=== PATIENT | female | born 1995 | race Caucasian/White ===

== ENCOUNTER 2024-08-31 08:00 | Day surgery (SDC) | payer OTHER ==
[2024-08-31] MEDS ORDERED: NALTREXONE50 MG PO (12:58)
[2024-08-31] MEDS ORDERED: KLONOPIN2 MG PO (12:59)
[2024-08-31] MEDS ORDERED: CLONIDINE0.1 MG PO (12:59)
== END 2024-09-01 09:35 | disposition still patient (30) | DRG 897 ==
LOC: ANR 08:00
PROVIDERS: ATTEND Anesthesiology
DX: F11.20 Opioid dependence, uncomplicated (principal)
CPT/HCPCS: J0735; J1100; J1200; J1630; J2060; J2354; J2405; J2550; J2704; J3475; J3480; J3490

== ENCOUNTER → 2024-08-31 | Day surgery (SDC) | payer OTHER ==
[~2024-08-31] VITALS: Ht 157.5 cm; Wt 73.5 kg
[2024-08-31] VITALS (237 sets, daily range): BP systolic 95–163; BP diastolic 64–120
[~2024-08-31] MED LIST: ACETAMINOPHEN 1,000 MG/100 ML VIAL IV PRN; ACETAMINOPHEN 325 MG/TAB PO SCH; ACETAMINOPHEN 500 MG TAB PO PRN; ALBUMIN 25% (12.5GM/50 ML) VIAL IV SCH; ALBUMIN 25% 250 ML IV SCH; ALBUTEROL SULFATE 2.5 MG VIAL IN PRN; ASCORBIC ACID 4,000 MG in SODIUM CHLORIDE 0.9% 1,000 ML IV SCH; BUMETANIDE 1 MG/4 ML VIAL IV ONE; BUMETANIDE 1 MG/4 ML VIAL IV SCH; CLONIDINE0.1 MG PO; CYANOCOBALAMIN 500 MCG/TAB ( B12) PO PRN; Cholecalciferol 2,000 UNIT/TAB PO PRN; DiphenhydrAMINE HCL 50 MG/ML SDV IV PRN; ETOMIDATE 20 MG/10 ML SDV IV ONE; FAMOTIDINE 20 MG/TAB PO PRN; HALOPERIDOL LACTATE 5 MG/ML SDV IV PRN; IPRATROPIUM-Albuterol 0.5MG-2.5MG/3 ML IN PRN; KETOROLAC TROMETHAMINE 30 MG/ML SDV IV PRN; KLONOPIN2 MG PO; LACTATED RINGER'S 1,000 ML IV PRN; LACTATED RINGER'S 500 ML IV ONE; LIDOCAINE HCL 1% (10MG/ML) 100 MG/10 ML MDV IV PRN; LIDOCAINE HCL 1% (10MG/ML) 100 MG/10 ML MDV VT PRN; LORazepam 2 MG/ML IV PRN; MAGNESIUM OXIDE 400 MG/TAB PO PRN; MAGNESIUM SULFATE HEPTAHYDRATE 1 GM in SODIUM CHLORIDE 0.9% 50 ML IV SCH; MAGNESIUM SULFATE HEPTAHYDRATE 100 ML IV PRN; MAGNESIUM SULFATE HEPTAHYDRATE 100 ML IV SCH; METOPROLOL SUCCINATE 25 MG/TAB-TOPROL XL PO SCH; METOPROLOL TARTRATE 25 MG/TAB PO SCH; METOPROLOL TARTRATE 5 MG/5 ML VIAL IV PRN; METOPROLOL TARTRATE 5 MG/5 ML VIAL IV SCH; MIDAZOLAM HCL 2 MG/2 ML VIAL IV PRN; NALTREXONE HCL 50 MG/TAB PO ONE; NALTREXONE HCL 50 MG/TAB PO SCH; NALTREXONE HCL 50 MG/TAB VT PRN; NALTREXONE50 MG PO; NOREPINEPHRINE BITARTRATE 4 MG in SODIUM CHLORIDE 0.9% 250 ML IV SCH; NYSTATIN (Mouth-Throat) 500 MU/UDC UDC PO SCH; OCTREOTIDE ACETATE 100 MCG/VIAL SDV SC PRN; ONDANSETRON HCl 4 MG/2 ML SDV IV PRN; PANTOPRAZOLE SODIUM Sesquihydr 40 MG/TAB PO PRN; PANTOPRAZOLE SODIUM Sesquihydr 40 MG/TAB PO SCH; PATIENT' OWN MED CONTROLLED 1 EA DOSE IV PRN; PHENYLEPHRINE HCL 10 MG in DEXTROSE 5% 250 ML IV SCH; PIPERACILLIN Sodium-Tazobactam 4.5 GM in SODIUM CHLORIDE 0.9% 100 ML IV SCH; POTASSIUM CHLORIDE 20 MEQ/100 ML BAG IV PRN; POTASSIUM CHLORIDE 20 MEQ/15 ML UDC VT SCH; POTASSIUM CHLORIDE 20 MEQ/PKT POWDER PO SCH; POTASSIUM CHLORIDE 20 MEQ/PKT POWDER VT SCH; POTASSIUM CHLORIDE 20 MEQ/TAB PO SCH; POTASSIUM CHLORIDE 20MEQ 100 ML IV SCH; PROMETHAZINE HCL 12.5 MG in SODIUM CHLORIDE 0.9% 50 ML IV PRN; PROMETHAZINE HCL 25 MG in SODIUM CHLORIDE 0.9% 50 ML IV PRN; PROPOFOL 10 MG/ML 100ML VIAL IV PRN; PROPOFOL 100 ML IV ONE; PROPOFOL 100 ML IV PRN; PROPOFOL 100 ML IV SCH; Pantoprazole Sodium 40 MG VIAL (Protonix) IV ONE; Pantoprazole Sodium 40 MG VIAL (Protonix) IV SCH; ROCURONIUM BROMIDE 10 MG/ML 5ML VIAL IV ONE; ROCURONIUM BROMIDE 10 MG/ML 5ML VIAL IV PRN; SCOPOLAMINE 1.5 MG DIS TD PRN; SODIUM CHLORIDE 0.9% IV PRN; STERILE WATER FOR IRRIGATION 1,000 ML BTL IR PRN; SUCCINYLCHOLINE CHLORIDE 20 MG/ML 10ML VIAL IV ONE; SUCCINYLCHOLINE CHLORIDE 20 MG/ML 10ML VIAL IV PRN; SUCRALFATE 1 GM/10 ML SUS PO ONE; THIAMINE HCL 100 MG/ML 2ML VIAL IV PRN; VECURONIUM BROMIDE IV PRN; VERAPAMIL HCL 10 MG/4 ML VIAL IV ONE; VERAPAMIL HCL 10 MG/4 ML VIAL IV SCH; cloNIDine HCL 0.1 MG/TAB PO ONE; cloNIDine HCL 0.1 MG/TAB PO PRN; cloNIDine HCL 0.1 MG/TAB PO SCH; cloNIDine HCL 0.1 MG/TAB VT PRN; cloNIDine HYDROCHLORIDE 100 MCG/ML 10 ML INJ IV ONE; cloNIDine HYDROCHLORIDE 100 MCG/ML 10 ML INJ IV PRN; clonazePAM 1 MG/TAB PO PRN; diazePAM 10 MG/2 ML VIAL IV ONE; diazePAM 10 MG/2 ML VIAL IV SCH; diazePAM 5 MG/TAB PO PRN; diazePAM 5 MG/TAB VT PRN; dilTIAZem HCL 30 MG/TAB PO SCH; dilTIAZem HCL 50 MG/10 ML SDV IV SCH; methylPREDNISolone Sod Succ 40 MG/ML SDV IV SCH
--- NOTE | 2024-08-31 08:00 | NUR ---
Arrival & Pre-treatment Patient arrived to the [facility] suite, identification and demographics confirmed. Patient to room 7, AAO, ambulatory, vitals obtained, ID/allergy/fall bands placed, changed into hospital gown, STEPHIE hose, and non-slip socks. Procedure and timeline explained for treatment and discharge. All questions answered and the patient presents no concerns at this time. V/S assessed, call light is near. Dr. Wiggins telephoned with patient intake information including usage, dose, last dose/time taken and initial vital signs. Patient history and allergies reviewed with MD. Orders received for 10mg PO Valium and 0.2mg PO Clonidine now. Will reassess per protocol and update MD with assessment and vitals.
--- NOTE | 2024-08-31 08:30 | NUR ---
Patient medicated per MD orders. In addition to Clonidine and Valium, patient received 1000 mcg B12 PO, 20 mg Pepcid PO, and Scopolamine TD patch. Medication indication and education provided prior to adminstration.
--- NOTE | 2024-08-31 09:00 | NUR ---
ASSESSED PATIENTS BELONGINGS; NO CONTRABAND FOUND. CELL PHONE, X2 VAPES AND NECKLACE, TONGUE RING PLACED IN RIGHT SHOE IN LOCKER BLUE #1.
[2024-08-31 09:49] LABS: BASO% 0.4 % (0-3); EOS% 1.5 % (0-8); HEMATOCRIT 39.9 % (37.0-47.0); HEMOGLOBIN 13.3 g/dl (12.0-16.0); IMMATURE GRANULOCYTES 0.2 % (0.0-5.0); LYMPH% 19.2 % (15-41); MEAN CELL VOLUME 107.3 fL CALC (80.0-100.0); MEAN CORPUSCULAR HGB 35.8 pG CALC (26.0-32.0); MEAN CORPUSCULAR HGB CONC 33.3 g/dL CAL (32.0-36.0); MONO% 4.4 % (2-13); NEUT# 7.89 thou/uL (2.00-7.15); NEUT% 74.3 % (42-76); RED BLOOD COUNT 3.72 mill/uL (4.20-5.60); RED CELL DISTRI WIDTH 13.5 % (11.5-15.5)
[2024-08-31 09:53] LABS: ALBUMIN 4.3 g/dL (3.2-5.0); BILIRUBIN, TOTAL 0.6 mg/dL (0.02-1.3); CREATININE 0.8 mg/dL (0.5-1.0); POTASSIUM 3.6 mmol/l (3.5-5.1); TOTAL PROTEIN 7.2 g/dL (6.3-8.2)
--- NOTE | 2024-08-31 10:00 | NUR ---
Patients vital signs within pre-treatment parameters for 1.5 hour recheck. No indication for additional Valium or Clonidine as patient is resting comfortably and vital signs are within range.
--- NOTE | 2024-08-31 10:35 | NUR ---
Induction Note Time out performed at 1035. Patient placed on monitors, Teodora hugger, bilateral wrist restraints applied for ET tube protection. Versed 5mg given IV push at 1122 Tourniquet applied to RT arm Lidocaine 100mg given at 1123 IV push followed by Rocoronium 10mg at 1124 IV push and held for 90 seconds. Propofol bolus of 120mg given at 1126 IV push. Succinylcholine 80mg given IV push at 1127. Smooth intubation with 7.5 ETT. Positive CO2. Positive Auscultation for air exchange. Patient placed on ventilator for spontaneous ventilation. Placed on Propofol IV drip at 1128. OG inserted. Positive air on auscultation. Positive gastric content. Stomach washed at this time.
--- NOTE | 2024-08-31 11:40 | NUR ---
OG close note Stomach washed at this time. Naltrexone 50 mg with Clonidine 0.2 mg via OG tube. OG will be clamped for 45 minutes.
--- NOTE | 2024-08-31 11:40 | NUR ---
OG close note Stomach washed at this time. Naltrexone 50 mg with Clonidine 0.2 mg via OG tube. OG will be clamped for 45 minutes.
--- NOTE | 2024-08-31 12:25 | NUR ---
OG open note OG open at this time. Gastric content draining into drainage bag. OG to drain for 45 minutes. Propofol will be titrated down based on patient.
--- NOTE | 2024-08-31 13:10 | NUR ---
OG close note Stomach washed at this time. Naltrexone 50 mg with Clonidine 0.2 mg via OG tube. OG will be clamped for 45 minutes.
--- NOTE | 2024-08-31 14:40 | NUR ---
OG close note Stomach washed at this time. Naltrexone 50 mg with Clonidine 0.2 mg via OG tube. OG will be clamped for 45 minutes.
--- NOTE | 2024-08-31 16:20 | NUR ---
Patient's support person (SP) telephoned with update. All questions answered, no concerns presented at this time. SP agreeable to POC.
--- NOTE | 2024-08-31 18:22 | NUR ---
Transfer Note Patient transferred to medical-surgical unit private room. Report given to primary nurse at bedside. Head to toe assessment, treatment, medications, I/O, IV access reviewed with primary nurse. All questions answered. IVF to continue at 100 ml/hr, NC @ 2L, no adventitious breath sounds. Safety precautions in place, bed locked and in lowest position, call light in reach. Handoff of care complete at this time.
--- NOTE | 2024-08-31 18:45 | NUR ---
patient arrive dto ms ffrom anr; bedside report from juan; no s.s of distress; eye covering placed; keyur hugger placed and working; iv site clean and intactrunning with LR@100; on 2l of ; breathing unlabored; call light within reach bed in lowest postion;safety measures in place; bed alarm activated
--- NOTE | 2024-08-31 19:48 | NUR ---
RECEIVED REPORT FROM DAYSHIFT NURSE. PT NOTED LAYING IN BED SEMI FOWLERS, SLEEPING AT THIS TIME. NASAL CANNULA IN PLACE ON 2L O2. LUNG SOUNDS CLEAR AND BREATHING IS EVEN AND UNLABORED. VSS. NO S/S OF DISTRESS. IVF RUNNING PER EMAR. BED ALARM ON AND SAFETY PRECAUTIONS IN PLACE.
--- NOTE | 2024-08-31 23:00 | NUR ---
PT HAD EPISODE OF VOMITTING @2200. CONDENSER TESTER AND STAFF IMMIDIATELY TURNED PT ONTO SIDE AND YANKER SUCTION WAS USED DUE TO PT BEING TOO DROWSY AND DISORIENTED TO COUGH OR SPIT UP EMESIS. REPOSITIONED PT HIGH FOLWERS IN BED. PT HAD GURGLING BREATH SOUNDS AND CRACKLING, O2 SAT WITH 2L O2 NC WAS 88%. RESPIRATORY THERAPY WAS NOTIFIED AND RESPONDED TO ROOM. ORAL AND NASAL SUCTION WAS COMPLETED, PT ONLY REACTIVE TO PAINFUL STIMULI. UNABLE TO AROUSE STILL. VENTRI MASK WAS PLACED ON 15L O2 AT 50%. PT O2 SATURATION CURRENTLY SITTING AT 94% AT THIS TIME. PT SITTING UP HIGH FOLWERS IN BED. BED ALARM ON AND SAFETY PRECAUTIONS IN PLACE.
[2024-09-01] VITALS (64 sets, daily range): BP systolic 101–154; BP diastolic 63–95
--- NOTE | 2024-09-01 00:36 | NUR ---
PT O2 SAT BEGAN DROPPING AND SUSTAINING AT 87% WITH THE VENTRI MASK. RT NOTIFIED AND NON REBREATHER PLACED ON PT AT 15L O2. PT BREATH SOUNDS CLEAR AT THIS TIME. PT IS SLOWLY BECOMING MORE RESPONSIVE. ABLE TO SQUEEZE HANDS AND TRIES TO NOD HEAD YES OR NOW BUT STILL PRESENTS VERY MUCH DROWSY. O2 SAT SITTING AT 95% ON THE NRB 15L. PT SITTING UP HIGH FOWLERS, BED ALARM ON AND SAFETY PRECAUTIONS IN PLACE.
--- NOTE | 2024-09-01 02:10 | NUR ---
PT RESPIRATIONS CONTINUED TO INCREASE AND PT USING ACCESSORY MUSCLES TO BREATH. RR >55 AND O2 SAT SUSTAINING AT 93% ON NRB. PHYSICIAN WAS INFORMED OF PT STATUS, VERBAL ORDER GIVEN FOR BIPAP TO BE INITIATED. RT NOTIFIED AND PT PLACED ON BIPAP @0135. PT BEGAN WAKING UP AND BECOMING VERY ANXIOUS AND AGITATED, PULLING AT BIPAP MASK. MEDICATION PER EMAR WAS ADMINSITERED FOR JOSE. PT TOLERATED WELL. PT SITTING UP HIGH FOWLERS IN BED, BIPAP IN PLACE. RT AND PACKER OPERATOR AUTOMATIC AT BEDSIDE.
--- NOTE | 2024-09-01 03:30 | NUR ---
PT HAS HAD MINIMAL IMPROVEMENT ON BIPAP AT THIS TIME.L ABG COMPLETED AND PHYSICIAN INFORMED OF PT STATUS, VERBAL ORDER GIVEN FOR CHEST XRAY 1V TO BE COMPLETED. RADIOLOGY NOTIFIED. PT RR FLUCTUATING FROM 40-70. HR, BP AND O2 SAT WNL. SOCIAL SERVICE TECHNICIAN AND RT AT BEDSIDE.
[2024-09-01 03:53] LABS: ALBUMIN 3.6 g/dL (3.2-5.0); CREATININE 0.7 mg/dL (0.5-1.0); MAGNESIUM 1.9 mg/dL (1.6-2.3); POTASSIUM 3.9 mmol/l (3.5-5.1); TOTAL PROTEIN 6.3 g/dL (6.3-8.2)
[2024-09-01 03:55] LABS: BILIRUBIN, TOTAL 1.5 mg/dL (0.02-1.3)
[2024-09-01 04:11] LABS: BASO% 0.2 % (0-3); HEMATOCRIT 40.1 % (37.0-47.0); HEMOGLOBIN 13.4 g/dl (12.0-16.0); IMMATURE GRANULOCYTES 0.4 % (0.0-5.0); LYMPH% 6.1 % (15-41); MEAN CELL VOLUME 109.6 fL CALC (80.0-100.0); MEAN CORPUSCULAR HGB 36.6 pG CALC (26.0-32.0); MEAN CORPUSCULAR HGB CONC 33.4 g/dL CAL (32.0-36.0); MONO% 1.7 % (2-13); NEUT# 10.55 thou/uL (2.00-7.15); NEUT% 91.6 % (42-76); RED BLOOD COUNT 3.66 mill/uL (4.20-5.60); RED CELL DISTRI WIDTH 13.1 % (11.5-15.5)
--- NOTE | 2024-09-01 05:09 | NUR ---
DID ATTEMPT TO ADMINSITER NALTREXONE, HOWEVER PT UNABLE TO FOLLOW COMMANDS OR DIRECTION AT THIS TIME. PT SITTING UP HIGH FOWLERS IN BED, BIPAP MASK IN PLACE. RR:49 VT:310 VE:11.1 IPAP:12 EPAP:8 O2:60%
--- NOTE | 2024-09-01 05:13 | NUR ---
PHYSICIAN INFORMED OF PT BIPAP SETTING AND CHEST XRAY RESULTS. NO NEW ORDERS AT THIS TIME.
--- NOTE | 2024-09-01 05:34 | NUR ---
PT HAD EPISODE OF VOMITTING. BIPAP REMOVED AND ORAL SUCTION USED TO HELP CLEAR EMESIS FROM ORAL CAVITY. RT AND NURSING NODULIZER NOTIFIED. NRB ON 15L O2 PLACED ON PT. 02 SAT SUSTAINING @99%. PT IS ABLE TO OPEN EYES TO NAME AND NOD HEAD YES OR NO. PT C/O STILL FEELING NAUSEOUS. MEDICATION ADMINSTERED PER EMAR FOR NAUSEA. RR:42, PT BREATHING HAS SLIGHTLY IMPROVED AT THIS TIME. OTHER VSS. PT SITTING UP HIGH FOLWERS IN BED. IVF RUNNING PER EMAR. BED ALARM ON AND SAFETY PRECAUTIONS IN PLACE. WATER SUPPLY TECHNICIAN SITTING AT DOORWAY.
--- NOTE | 2024-09-01 06:05 | NUR ---
ADRY FROM RADIOLOGIST OFFICE CALLED TO CONFIRM CHEST XRAY FINDINGS WERE REPORTED TO PHYSICIAN FOR SIGNIFICANT FINDINGS. WAS ALREADY MADE AWARE OF IMAGING RESULTS @9910.
--- NOTE | 2024-09-01 07:57 | NUR ---
CALLED PROVIDER REGARDING PATIET STATUS AND RESPIRATIONS, PATIENT REFUSING TO WEAR NOSE REBREATHER, AND RESPIRATIONS ARE 41 BLOOD PRESSURE 113/79 02 IS 92; VERBAL ORDER TO PLACE PATIENT BACK ON CIPAP; RT WAS CALLED AND NOTFIED,
--- NOTE | 2024-09-01 08:15 | NUR ---
PATIENT IS CURRENTLY BREATHING SHALLOW AND MORE FREQUENTLY, PATIENT CURRENTLY IN CIPAP WITH RESPIRATIONS IN 60S-70S, FACIAL WAS PALE, WITH IVSITE RUNNING WITH LR @100, O2 WAS IN THE 90S, CHRISTOPHE CALLED RTAMADOR RN AND HARJINDER POWELL , TO HELP ASSIST AND GET MORE HELP WITH STATUS OF PATIENT; CHRISTOPHE CALLED DR. LEMUS REGARDING PATIENT AND GOT VERBAL ORDER FOR CLONDINE 0.1 MG IV, ADDIONAL NALTREXONE 25MG, AND CLONPAM 1MG; ORDERS WAS FAXED TO PHARMACY, HARJINDER POWELL MEDICATED CLONDINE CHRISTOPHE MEDICATED WITH CLONAPAM AND NALTREXONE WELL MAGNEISUM DUE TO LEVELS UNDER PROGRAM GUIDLINES AND PROVIDER APPROVAL; CHRISTOPHE GRANDE AND AMADOR ENCOUARGED PATIENT TO TAKE A COUPLE OF BREATHS AND TRY TO RELAX WE OBSERVED HER SWEATING AND BREATHING MORE FREQUENTLY, LUIS ANGEL CALLED DR. LEMUS AGAIN FOR STATUS OF PATIENT AND GOT VERBAL ORDER TO PLACE PATIENT IN ICU AND TO GET ON PRESDEX, HARJINDER SAEED AND TRASNPORTED PATIENT TO ICU AND CHRISTOPHE GAVE REPORT TO ICU NURSE HERMANN AND CALLED PROVIDER AGAIN TO UPDATE PROVIDER ON PATIENT STATU S
--- NOTE | 2024-09-01 09:45 | NUR ---
PT ARRIVED TO ICU AT 0933 VIA HOSPITAL BED ON BIPAP. RT AT BEDSIDE. BEDSIDE REPORT RECEIVED FROM ANDRE BRAY. PT IS FROM [facility], PROCEDURE WAS YESTERDAY. PT REPORTEDLY HAS BEEN TACHYPNEIC THROUGHOUT THE NIGHT AND ALL MORNING; RR RANGING FROM 30'S TO 70'S. LUNG SOUNDS VERY COARSE THROUGHOUT. PT IS TO START PRECEDEX GTT. SITTER AT BEDSIDE.
--- NOTE | 2024-09-01 11:45 | NUR ---
PT REMAINS EXTREMELY TACHYPNEIC ON PRECEDEX GTT. ANDRE WARD, NOTIFIED DR. LEMUS TO UPDATE ON PT STATUS.
--- NOTE | 2024-09-01 12:45 | NUR ---
PT INTUBATED AT [address] CHAVEZ. RT ALSO AT BEDSIDE. NG TUBE PLACED, WELL CENTRAL LINE. PER ORDERS FROM DR. LEMUS. PT TOLERATED WELL. SEDATED WITH ROCURONIUM AND ETOMIDATE; PT NOW HAS PROPOFOL INFUSING TO MAINTAIN SEDATION AND RASS -2.
--- NOTE | 2024-09-01 13:15 | NUR ---
PT FAMILY UPDATED BY ANDRE WARD.
[2024-09-01 13:21] LABS: BASO% 0.2 % (0-3); LYMPH% 9.6 % (15-41); MEAN CELL VOLUME 108.6 fL CALC (80.0-100.0); MEAN CORPUSCULAR HGB 36.2 pG CALC (26.0-32.0); MEAN CORPUSCULAR HGB CONC 33.3 g/dL CAL (32.0-36.0); MONO% 2.1 % (2-13); NEUT# 5.02 thou/uL (2.00-7.15); NEUT% 87.9 % (42-76); RED BLOOD COUNT 3.59 mill/uL (4.20-5.60); RED CELL DISTRI WIDTH 13.1 % (11.5-15.5)
[2024-09-01 13:40] LABS: IMMATURE GRANULOCYTES 0.2 % (0.0-5.0)
--- NOTE | 2024-09-01 13:42 | NUR ---
PATIENT HAD A 16 [place] WEINSTEIN CATHETER INSERTED AT 1344 ON 09/01/24 . 1 ATTEMPT
[2024-09-01 13:46] LABS: ALBUMIN 3.2 g/dL (3.2-5.0); BILIRUBIN, TOTAL 1.6 mg/dL (0.02-1.3); CREATININE 0.6 mg/dL (0.5-1.0); POTASSIUM 4.6 mmol/l (3.5-5.1); TOTAL PROTEIN 5.8 g/dL (6.3-8.2)
--- NOTE | 2024-09-01 14:30 | NUR ---
CALLED SPOKE WITH DR. LEMUS RELAYED ABG RESULTS ORDERS RECEIVED.
--- NOTE | 2024-09-01 15:00 | NUR ---
NO CHANGES TO PT STATUS. TOLERATING CURRENT VENT SETTINGS WELL; VENT SETTINGS PREVIOUSLY ADJUSTED BY RT PER DR. LEMUS. GASTRIC CONTENT TESTED POSITIVE FOR BLOOD. DR. Singh AWARE. PT STARTED ON KARAFATE PER HIS ORDERS. VSS AT THIS TIME. RASS -2.
--- NOTE | 2024-09-01 16:20 | NUR ---
SPOKE WITH DR. LEMUS OVER THE PHONE. ORDERS RECEIVED TO HOLD LAST DOSE OF POTASSIUM, WELL TO INCREASE PEEP TO 8, AND SLOWLY TITRATE FIO2 DOWN TOLERATED TO MAINTAIN O2SAT >92%. ORDERS RECEIVED FOR NALTREXONE 50MG DAILY. ORDERS PLACED AND RT NOTIFIED TO MAKE VENT SETTINGS.
--- NOTE | 2024-09-01 17:00 | NUR ---
NO SIGNIFICANT CHANGES TO PT STATUS. O2SAT INCREASED WITH CHANGE MADE TO PEEP; RT AT BEDSIDE TO TITRATE FIO2 DOWN FROM 60 TO 50%. PT SATTING 98%. PT REMAINS TACHYPNEIC, RR 31. RASS -2. ALL OTHER VITAL SIGNS STABLE.
--- NOTE | 2024-09-01 20:49 | NUR ---
AWAKENING TRIAL STARTED AT 2014 AND COMPLETED 2029. PATIENT UNABLE TO FOLLOW COMMANDS BUT RESPONDS TO PAIN. ASSESSMENT COMPLETED. PATIENT INTUBATED WITH A 7.5 ET, 24 AT THE LIP. RIJ TL PATENT WITH PROP AT 50 MCG/KG/MIN (19.2 mL/HR) , LR @ 100 mL/HR AND PRECEDEX AT 1.6 MCG/KG/HR (25.6 mL/HR). LUNGS COARSE TO ASCULTATION. PATIENT VENTILATED WITH VENTILATOR SETTINGS FOLLOWS: VT 450 FIO2 40% RR 20 PEEP 8 BOWEL SOUNDS ACTIVE. NO EDEMA NOTED. OG PATENT TO LOW/INT SUCTION, 50 mL OF DARK RED SECRECTIONS NOTED. WEINSTEIN PATENT AND FLOWING TO GRAVITY WITH 175 mL OF CLEAR, YELLOW URINE NOTED. SR ON THE MONITOR. ORAL CARE PROVIDED AND PATIENT REPOSITIONED TO L SIDE. SAFETY MEASURES IN PLACE INCLUDING B/L WRIST RESTRAINTS ORDERED, BED LOCKED AND IN LOW POSITION. NO APPARENT DISTRESS NOTED. WILL CONTINUE WITH PLAN OF CARE.
--- NOTE | 2024-09-01 22:00 | NUR ---
PATIENT REPOSITIONED TO R SIDE. ORAL CARE PROVIDED. VSS. INITIAL ASSESSMENT UNCHANGED. 325 mL OF URINE NOTED IN WEINSTEIN. NO APPARENT DISTRESS NOTED. WILL CONTINUE WITH PLAN OF CARE.
[2024-09-02] VITALS (91 sets, daily range): BP systolic 105–149; BP diastolic 66–97
--- NOTE | 2024-09-02 | NUR ---
ROUNDING COMPLETE. INITIAL ASSESSMENT UNCHANGED. ORAL CARE PROVIDED. REPOSITIONED SUPINE. 450 mL OF URINE NOTED IN WEINSTEIN. 15 mL NOTED FROM OG. SR ON THE MONITOR. VSS. WILL CONTINUE WITH PLAN OF CARE.
--- NOTE | 2024-09-02 04:10 | NUR ---
ROUNDING COMPLETE. PATIENT PROVIDED ORAL CARE, COMPLETE BED BATH AND LINEN CHANGE. REPOSITIONED TO L SIDE. VITAL SIGNS STABLE: HR 68 O2 SAT 97% BP 122/64 RR 26 675 mL OF URINE NOTED IN WEINSTEIN. NO ADDITIONAL CONCERNS AT THIS TIME. WILL CONTINUE WITH PLAN OF CARE.
--- NOTE | 2024-09-02 04:38 | NUR ---
ABG RESULTS IN (REVIEW LABS), ROBIN RT UPDATED DR. LEMUS VERBAL ORDER RECEIVED TO DECREASE RATE TO 15.
[2024-09-02 05:45] LABS: BASO% 0.2 % (0-3); EOS% 0.1 % (0-8); MEAN CELL VOLUME 107.9 fL CALC (80.0-100.0); MEAN CORPUSCULAR HGB 36.2 pG CALC (26.0-32.0); MEAN CORPUSCULAR HGB CONC 33.5 g/dL CAL (32.0-36.0); MONO% 2.2 % (2-13); NEUT# 9.46 thou/uL (2.00-7.15); RED BLOOD COUNT 3.04 mill/uL (4.20-5.60); RED CELL DISTRI WIDTH 13.4 % (11.5-15.5)
--- NOTE | 2024-09-02 05:56 | NUR ---
PATIENT REPOSITIONED SUPINE. ORAL CARE PROVIDED. VSS. NO ADDITIONAL CONCERNS. WILL CONTINUE WITH PLAN OF CARE.
[2024-09-02 05:57] LABS: ALBUMIN 2.6 g/dL (3.2-5.0); CREATININE 0.8 mg/dL (0.5-1.0); POTASSIUM 3.7 mmol/l (3.5-5.1)
[2024-09-02 06:23] LABS: HEMATOCRIT 32.8 % (37.0-47.0)
[2024-09-02 06:24] LABS: LYMPH% 10.5 % (15-41)
--- NOTE | 2024-09-02 08:00 | NUR ---
PT IS SEDATED AND RESTRAINED. RESTRAINT CARE COMPLETED. PT TURNED TO THE RIGHT. ORAL CARE PROVIDED.
--- NOTE | 2024-09-02 10:04 | NUR ---
PT IS TURNED TO THE LEFT. ORAL CARE AND RESTRAINT CARE PROVIDED. SEE CHART.
--- NOTE | 2024-09-02 11:44 | NUR ---
UNSUCCESSFUL WEANING AND WAKING TRAIL COMPLETED WITH RT HURN AND MYSELF AT BEDSIDE.
--- NOTE | 2024-09-02 12:06 | NUR ---
PT IS INTUBATED AND SEDATED. ORAL AND RESTRAINT CARE PROVDED, SEE CHART. PT TURNED SUPINE.
--- NOTE | 2024-09-02 14:00 | NUR ---
PT IS IN THE SAME CONDITION. DR. LEMUS AT BEDSIDE. ORAL AND RESTRAINT CARE COMPLETED.
--- NOTE | 2024-09-02 15:58 | NUR ---
PT IN THE SAME CONDITION. PT TURNED TO MAR[place]. ORAL AND RESTRAINT CARE PROVIDED, SEE CHART.
--- NOTE | 2024-09-02 18:25 | NUR ---
PT IN THE SAME CONDITION. PT TURNED TO SUPINE. ORAL AND RESTAINT CARE PROVIDED.
--- NOTE | 2024-09-02 19:45 | NUR ---
PATIENT LYING IN BED, REPOSITIONED TO R SIDE. ORAL CARE PROVIDED. ASSESSMENT COMPLETED. PATIENT NOTED TO BE WARM/DIAPHORETIC. TEMP 99.8, WILL MEDICATE ACCORDING TO EMAR. LUNGS CLEAR/DIMINISHED TO ASCULTATION. BREATHING ASSISTED ON VENTILATOR. VENT SETTINGS FOLLOWS: FIO2: 40% PEEP: 8 RR: 15 PINSP: 15 TI: 0.95 (SEE CHART FOR VS). PATIENT PULLING AT RESTRATINTS AND TOSSING HEAD BACK AND FORTH. WILL INCREASE PROPOFOL PER PROTOCOL. RIJ PATENT WITH PROP AT 60 MCG/KG/MIN, PRECEDEX AT 1.6 MCG/KG/MIN (25.6 mL/HR), AND LR AT 150 mL/HR. WEINSTEIN PATENT AND FLOWING TO GRAVITY WITH 40 mL OF CLEAR, YELLOW URINE NOTED. COVID/FLU LABS ORDERED (SEE PROGRESS NOTE). CLARIFICATION RECEIVED FROM DR. LEMUS, PATIENT IS TO HAVE BOLUS TUBE FEED TID. START AT 60 mL WITH 200 mL FLUSH. WILL GIVE PATIENT FIRST FEED AT 2100. FEED IS TO BE INCREASED, "SLOWLY" PER MEAL PATIENT TOLERATES. WILL INCREASE BY 20 mL PER FEED. WILL CLARIFY GOAL WITH DR. LEMUS 09/03. SAFETY MEASURES IN PLACE INCLUDING BED LOCKED AND IN LOW POSITION. NO ADDITIONAL CONCERNS AT THIS TIME. WILL CONTINUE WITH PLAN OF CARE. RT AT BEDSIDE.
--- NOTE | 2024-09-02 20:15 | NUR ---
DR. LEMUS CONTACTED AND MADE AWARE THAT PATIENT IS MAXXED ON PROP AT 75 MCG/KG/MIN AND ON 1.6 MCG/KG/HR OF PRECEDEX ([facility] PROTOCOL > 0.8 MCG/KG/HR) PATIENT CONTINUES TO BE RESTLESS, RR BETWEEN 35 - 40, PROVIDER AWARE OF FEVER AT 99.8 - MEDICATED ACCORDING TO EMAR. VERBAL ORDER GIVEN TO ADMINISTER 2MG ATIVAN NOW, ADDITIONAL 2MG IF NECCESSARY. DO NOT EXCEED 6MG TOTAL.
[2024-09-03] VITALS (73 sets, daily range): BP systolic 103–163; BP diastolic 61–94
--- NOTE | 2024-09-03 | NUR ---
PATIENT REPOSITIONED SUPINE. ORAL CARE PROVIDED. WILL CONTINUE WITH PLAN OF CARE.
--- NOTE | 2024-09-03 02:00 | NUR ---
PATIENT REPOSITIONED TO R SIDE. ORAL CARE PROVIDED. WILL CONTINUE WITH PLAN OF CARE.
[2024-09-03 05:40] LABS: BASO% 0.2 % (0-3); EOS% 0.1 % (0-8); HEMATOCRIT 32.4 % (37.0-47.0); HEMOGLOBIN 10.7 g/dl (12.0-16.0); IMMATURE GRANULOCYTES 0.2 % (0.0-5.0); MEAN CELL VOLUME 110.6 fL CALC (80.0-100.0); MEAN CORPUSCULAR HGB 36.5 pG CALC (26.0-32.0); MONO% 3.2 % (2-13); NEUT# 7.19 thou/uL (2.00-7.15); NEUT% 84.2 % (42-76); RED BLOOD COUNT 2.93 mill/uL (4.20-5.60); RED CELL DISTRI WIDTH 13.2 % (11.5-15.5)
[2024-09-03 05:50] LABS: ALBUMIN 2.4 g/dL (3.2-5.0); BILIRUBIN, TOTAL 0.9 mg/dL (0.02-1.3); CREATININE 0.7 mg/dL (0.5-1.0); POTASSIUM 3.3 mmol/l (3.5-5.1); TOTAL PROTEIN 4.8 g/dL (6.3-8.2)
[2024-09-03 06:00] LABS: LYMPH% 12.1 % (15-41)
--- NOTE | 2024-09-03 06:00 | NUR ---
PATIENT GIVEN COMPLETE BED BATH AND LINEN CHANGE. REPOSITIONED SUPINE AND ORAL CARE PROVIDED. WILL CONTINUE WITH PLAN OF CARE.
--- NOTE | 2024-09-03 08:00 | NUR ---
PT IS SEDATED AND INTUBATED. PT TURNED TO RIGHT. ORAL AND RESTRAINT CARE PROVIDED, SEE CHART.
--- NOTE | 2024-09-03 08:00 | NUR ---
DID NOT DO WEAING TRIAL YET, PER DR. LEMUS'S ORDERS. WILL TRY WEANING TRIAL WITH DR. LEMUS TODAY.
--- NOTE | 2024-09-03 09:54 | NUR ---
PT CONDITION THE SAME. PT TURNED TO THE LEFT. ORAL AND RESTRAINT PROVIDED, SEE CHART.
--- NOTE | 2024-09-03 12:00 | NUR ---
PT TURNED TO THE SUPINE POSITION. ORAL AND RESTRAINT CARE PROVIDED, SEE CHART.
--- NOTE | 2024-09-03 12:36 | NUR ---
ET TUBE PULLED BACK 2CM PER . ET TUBE AT THE 21CM JULIANN AT THE THE LIP.
--- NOTE | 2024-09-03 14:00 | NUR ---
PT TURNED TO THE RIGHT, MOTHER AT BEDSIDE. ORAL CARE AND RESTRAINT CARE PROVIDED, SEE CHART.
--- NOTE | 2024-09-03 16:01 | NUR ---
PT TURNED TO THE LEFT. ORAL AND RESTRAINT CARE PROVIDED, SEE CHART.
--- NOTE | 2024-09-03 17:30 | NUR ---
DR. LEMUS MADE AWARE OF ALL OF THE FOLLOWING. TEMP OF 102 AND PT STATE OF BEING FLUSHED AND DIAPHORETIC. PT WAS GIVEN TYLONOL ORDERED. PT TEMP CAME DOWN TO 98.9, PT IS STILL DIAPHORETIC AND FLUSHED. SEE NEW ORDERS.
--- NOTE | 2024-09-03 18:17 | NUR ---
PT TURNED SUPINE. ORAL AND RESRAINT CARE COMPLETED, SEE CHART.
--- NOTE | 2024-09-03 20:00 | NUR ---
PATIENT REPOSITIONED TO R SIDE. ASSESSMENT COMPLETED (SEE INTERVENTIONS). ORAL CARE PROVIDED. PATIENT NOTED TO HAVE A RASS OF 2. SAFETY MEASURES IN PLACE INCLUDING BED IN LOW POSITION AND LOCKED, RESTRAINTS IN USE. NO ADDITIONAL CONCERNS AT THIS TIME. WILL CONTINUE WITH PLAN OF CARE.
--- NOTE | 2024-09-03 21:13 | NUR ---
CONTACTED DR. SALOMON REGARDING PATIENT'S ELEVATED RR. PROVIDER STATES TO ADMINISTER 10MG DIAZEPAM, DO NOT REINTRODUCE PRECEDEX AT THIS TIME AND USE ATIVAN IF NEEDED LATER. NO ADDITIONAL ORDERS AT THIS TIME.
--- NOTE | 2024-09-03 22:00 | NUR ---
PATIENT NOTED TO HAVE A SMALL, LIQUID, BROWN BOWEL MOVEMENT. PATIENT CLEANED, ORAL CARE PROVIDED AND REPOSITIONED TO L SIDE. RR 45. NO ADDITIONAL CONCERNS, WILL CONTINUE WITH PLAN OF CARE.
[2024-09-04] VITALS (70 sets, daily range): BP systolic 115–168; BP diastolic 64–88
--- NOTE | 2024-09-04 00:21 | NUR ---
PATIENT REPOSITIONED SUPINE. ORAL CARE PROVIDED. SINUS TACH ON THE MONITOR. NO ADDITIONAL CONCERNS. WILL CONTINUE WITH PLAN OF CARE.
--- NOTE | 2024-09-04 02:31 | NUR ---
SPOKE WITH DR. LEMUS REGARDING PATIENT'S HEART RATE, CURRENTLY 129 AND FOAM COMING OUT OF PATIENT'S NOSE. ORDERS GIVEN FOR STAT EKG, ECHO, AND METOPROLOL 2.5MG AND ADDITIONAL 2.5 IF UNRESOLVED AND BP STABLE. ORDERS PLACED. PATIENT CLEANED, REPOSITIONED TO R SIDE. ORAL CARE PROVIDED. PATIENT DEEP SUCTIONED.
--- NOTE | 2024-09-04 03:46 | NUR ---
FOLLOW UP CALL RECEIVED FROM DR. LEMUS, UPDATED ON PATIENT'S STATUS. REQUESTED TO BE CALL WITH ECHO RESULTS SOON IMPRESSION IS IN.
[2024-09-04 04:34] LABS: BASO% 0.1 % (0-3); HEMATOCRIT 35.4 % (37.0-47.0); HEMOGLOBIN 11.5 g/dl (12.0-16.0); MEAN CELL VOLUME 111.7 fL CALC (80.0-100.0); MEAN CORPUSCULAR HGB 36.3 pG CALC (26.0-32.0); MEAN CORPUSCULAR HGB CONC 32.5 g/dL CAL (32.0-36.0); MONO% 7.8 % (2-13); NEUT# 6.26 thou/uL (2.00-7.15); NEUT% 80.3 % (42-76); RED BLOOD COUNT 3.17 mill/uL (4.20-5.60); RED CELL DISTRI WIDTH 13.3 % (11.5-15.5)
[2024-09-04 04:55] LABS: ALBUMIN 2.7 g/dL (3.2-5.0); BILIRUBIN, TOTAL 1.1 mg/dL (0.02-1.3); CREATININE 0.7 mg/dL (0.5-1.0); POTASSIUM 3.5 mmol/l (3.5-5.1); TOTAL PROTEIN 5.2 g/dL (6.3-8.2)
[2024-09-04 05:02] LABS: IMMATURE GRANULOCYTES 0.8 % (0.0-5.0)
--- NOTE | 2024-09-04 06:13 | NUR ---
RT AT BEDSIDE TO ASSESS PATIENT PATIENT RECEIVED BED BATH AND VENT ALARMING FOR HIGH 02. PATIENT REPOSITIONED SUPINE, ORAL CARE PROVIDED. NO ADDITIONAL CONCERNS AT THIS TIME. WILL CONTINUE WITH PLAN OF CARE.
--- NOTE | 2024-09-04 07:30 | NUR ---
REPORT RECEIVED FROM NIGHT NURSE. PT REMAINS ON VENTILATOR, PC-AC. FiO2 60%, Pins INCREASED TO [address] LEMUS AFTER ABG RESULT, RR 15, PEEP 10. PT BREATHING OVER THE VENT, RANGING FROM 38-50'S. HR ELEVATED IN THE 120'S. O2SAT 91%. PHONE CALL RECEIVED FROM [place] FELIPE TO ADVANCE ET TUBE 3CM; RT NOTIFIED AND IS AT BEDSIDE TO DO SO. PT LUNG SOUNDS COARSE THROUGHOUT. BS HYPOACTIVE; ABDOMEN SOFT. OG TUBE TO LIS; GREEN DRAINAGE. PULSES WEAK ALL EXTREMETIES. SKIN W/M/I. WEINSTEIN CATHETER IN PLACE. SEDATED WITH PROPOFOL, RASS -2. RESTRAINTS REMOVED TEMPORARILY FOR NURSING CARE AND REPOSITIONING. PUPILS 4CM.
--- NOTE | 2024-09-04 07:46 | NUR ---
ET TUBE ADVANVED 3CM PER X-RAY.
--- NOTE | 2024-09-04 08:28 | NUR ---
PHONE CALL PLACED TO DR. LEMUS TO NOTIFY OF PT STATUS. ORDERS RECEIVED TO GIVE ADDITIONAL 1MG DOSE OF METOPROLOL AND 1MG BUMEX AFTER CXR RESULTS CONVEYED. RT NOW AT BEDSIDE TO DO ABG, AND AWARE TO CALL DR. Singh WITH RESULTS.
--- NOTE | 2024-09-04 08:55 | NUR ---
SPOKE WITH DR. LEMUS ON THE PHONE TO INFORM THAT WE DO NOT TO INTRA-ABDOMINAL PRESSURE MONITORING. TOLERATING VENT SETTINGS, BUT STILL BREATHING OVER THE VENT, AROUND 38 BREATHS PER MIN. HR REMAIN ELEVATED EVEN AFTER ADDITIONAL DOSE OF METOPROLOL; RATE 115. BP STABLE. RASS -2; SEDATED WITH PROPOFOL.
--- NOTE | 2024-09-04 09:06 | NUR ---
PRESSURE INCREASED TO 21 PER .
--- NOTE | 2024-09-04 10:37 | NUR ---
PHONE CALL PLACED TO DR. LEMUS TO UPDAT CARMINE PT STATUS. INFORMED OF PT VS, INCLUDING HR, RR, AND 02SAT. ORDERS RECEIVED FOR METOPROLOL PRN TO KEEP HR LESS THAN OR EQUAL TO 100.
--- NOTE | 2024-09-04 11:27 | NUR ---
NO CHANGES TO PT STATUS. GIVEN ORDERED PRN METOPROLOL FOR ELEVATED HR. RR REMAINS UNCHANGED. REPOSITIONED AND MOUTH CARE. RASS -2.
--- NOTE | 2024-09-04 13:03 | NUR ---
FILM COLOR TESTER AT BEDSIDE TO COMPLETE ORDERED EXAMS.
--- NOTE | 2024-09-04 14:14 | NUR ---
NO CHANGES TO PT STATUS. RR REMAINS ELEVATED, HR REMAINS ELEVATED. O2SAT 92%. PT RPOSITIONED AND MOUTH CARE PROVIDED.
--- NOTE | 2024-09-04 15:00 | NUR ---
PHONE CALL PLACED TO DR. LEMUS. INFORMED OF LOWER EXTREMETY VENOUS STUDY WELL ECHO PRELIM RESULTS. UPDATED ON MOST RECENT VS. ORDER RECEIVED FOR LABETOLOL 10MG Q15 MIN TO MAINTAIN HR LESS THAN OR EQUAL TO 100. ORDER PLACED AND PHARMACY NOTIFIED.
--- NOTE | 2024-09-04 17:00 | NUR ---
NO CHANGES TO PT STATUS. REPOSITIONED AND ORAL CARE PROVIDED. ROM DONE.
--- NOTE | 2024-09-04 17:33 | NUR ---
PHONE CALL PLACED TO DR. LEMUS. INFORMED THAT CARDIZEM BOLUS HAD NO EFFECT ON PT HR. UPDATED ON CURRENT VS. ORDERS RECEIVED FOR VERAPAMIL.
--- NOTE | 2024-09-04 18:19 | NUR ---
DR. LEMUS AT BEDSIDE TO ASSESS PT. ORDERS RECEIVED FOR ADDITIONAL DOSE OF VERAPAMIL.
--- NOTE | 2024-09-04 18:35 | NUR ---
PHONE CALL PLACED TO [facility] TO REQUEST THEY VERYIFY MEDICATIONS.
--- NOTE | 2024-09-04 19:30 | NUR ---
RECD REPORT FROM DAY SHIFT RN. PT INTUBATED ETT 7.5 23@LIP 60% FIO2 PEEP8 RASS -3 ON PROPOFOL GTT AT 70 MICS. RECEIVING LR @ 60ML/HR, DR LEMUS BEDSIDE TO DISCUSS PLAN OF CARE. VERAPIMIL ORDERED 5MG ON DAY SHIFT, ORDERED 10MG REPEAT DOSE - OVERRIDEN BY NIGHT RN AND ADMINISTERED. ALBUMIN ORDERED AND INFUSED PER MD ORDER. AT THIS TIME, PT IS GENERALLY STABLE ALTHOUGH INTERMITTENT RESPIRATORY CONCERNS, COMMUNICATED WITH MD AND PLAN TO DISCUSS THROUGHOUT SHIFT IF NEEDED. FALL PRECAUTIONS IN PLACE.
[2024-09-04 22:45] LABS: BASO% 0.1 % (0-3); HEMATOCRIT 34.1 % (37.0-47.0); HEMOGLOBIN 11.2 g/dl (12.0-16.0); IMMATURE GRANULOCYTES 0.4 % (0.0-5.0); LYMPH% 11.8 % (15-41); MEAN CELL VOLUME 108.3 fL CALC (80.0-100.0); MEAN CORPUSCULAR HGB 35.6 pG CALC (26.0-32.0); MEAN CORPUSCULAR HGB CONC 32.8 g/dL CAL (32.0-36.0); MONO% 7.5 % (2-13); NEUT# 5.65 thou/uL (2.00-7.15); NEUT% 80.2 % (42-76); RED BLOOD COUNT 3.15 mill/uL (4.20-5.60); RED CELL DISTRI WIDTH 13.4 % (11.5-15.5)
[2024-09-04 22:55] LABS: CREATININE 0.8 mg/dL (0.5-1.0)
[2024-09-04 22:56] LABS: POTASSIUM 2.5 mmol/l (3.5-5.1)
[2024-09-05] VITALS (24 sets, daily range): BP systolic 115–147; BP diastolic 70–87
--- NOTE | 2024-09-05 | NUR ---
AT 2208PM PT REPEAT VERIFIED TEMPERATURE 103.1 ORDERED STAT LACTIC, CBC W/DIFF AND CHEM. INFUSED IV TYLENOL 1,000MG PER MD ORDER. ZOSYN ADMINISTERED ORDERED. REPEATED TEMPERATURES SHOWED 2335 102.4, 2354 101.9. LABS RESULTED WITH POTASSIUM LOW AT 2.5. COLLABORATIVE DISCUSSION WITH RT AGREED TO ADD NEB TX TO REQUEST UPON MD CALL. CONTACTED DR Singh AT 2330 ONCE REMAININT LABS ANDLACTIC RESULTED (1.7). REQUESTED RATE CONTROL MED FOR HR SUSTAINING > 120. REPEAT IV VERAPIMIL ORDERED AND ADMINISTERED. REQUESTED NEB TX, ORDERED AND ENTERED. POTASSIUM AND MAGNESIUM REPLACEMENT ORDERED. DR LEMUS REQUESTED NIMBEX GTT PARALYTIC AGENT. DISCUSSED IF IT WAS FORMULARY IN HOUSE AND WOULD CALL BACK. IN COLLABORATION WITH HOUSE SUP VECURONIUM GTT PROTOCOL WAS FOUND TO BE ICU BASELINE PARALYTIC TREATMENT. VOOLTIMETER AND BIS LOCATED AND VERIFIED OPERATIONAL IN PREPARATION FOR INITIATION OF PARALYTIC AGENT. CONTACTED MD TO VERIFY WHETHER MD DESIRED LOADING DOSE OR TO TITRATE WITHOUT BOLUS LOADING DOSE AND MD STATED THAT HE DID NOT WANT VECURONIUM, HE REQUESTED NIMBEX SPECIFICALLY WHICH WAS NOT IN FORMULARY. COMMUNICATED PT CONDITION AT THAT TIME WHICH WAS REFLEXIVELY STABLE IN COMPARISON TO PRIOR WITH HR 90S, BP 120S/90S, SAT 93 ON VENT AT 60%. MD DECIDED TO HOLD THE PARALYTIC FOR FURTHER REVIEW. MD NOTIFIED OF PT TEMPERATURES, CURRENT TEMP 100.1 WITH NURSING INTERVENTIONS COOLING AGENTS, ICE PACKS CLOTH AND FANS ASSISTING WITH THERMOREGULATION ADJUVANT TO ANTIPYRETIC AGENTS PER MD ORDER. FALL PRECAUTIONS REMAIN IN PLACE.
--- NOTE | 2024-09-05 01:30 | NUR ---
PT CLEANED FROM BM. DEMONSTRATING EXCESSIVE ATTEMPTS AT AIRWAY CLEARANCE, SUCTIONING COMPLETED. CLEANED FROM BM WITH BED BATH AND LINEN CHANGE. RECONNECTED OGT TO LIS AND RELIEVED OF APPROX 400CC OF GREEN/BILE LIKE FLUID. BOLSTERED HEAD AND OFFLOADED PROMINENCES FOR SUPPORT. TEMPERATURE REMAINS STABLE AT THIS TIME HOVERING AROUND 100.0-100.2 PER FREQUENT TEMP CHECKS. FALL PRECAUTIONS REMAIN IN PLACE.
--- NOTE | 2024-09-05 03:45 | NUR ---
DR LEMUS CALLED - DISCUSSED CURRENT CONDITION AND STABILITY OF PATIENT. ORDERED CXR AND ABG FOR 0500AM. PER MD WISHES GAS RESULTS SENT TO HIM MD IS EN ROUTE TO ANOTHER FACILITY AT THIS TIME. RT CONTACTED FOR GAS.
--- NOTE | 2024-09-05 05:50 | NUR ---
SPOKE WITH DR AFTER SENDING GAS RESULTS - REQ TV REDUCED TO 550 AND PEEP INCREASED TO 10. RT NOTIFIED AND BEDSIDE SETTINGS CHANGED. PT REQUIRES INTENSE AND CONSISTENT CARE. REMAINS STABLE AT THIS TIME. FALL PRECAUTIONS IN PLACE.
--- NOTE | 2024-09-05 07:02 | NUR ---
REPORT GIVEN TO DAY SHIFT RN. PT STABLE AT THIS TIME, LAST TEMP 0600 100.0. RESTING CALMLY WITH PRECAUTIONS IN PLACE.
--- NOTE | 2024-09-05 07:31 | NUR ---
REPORT RECEIVED FROM NIGHT NURSE. PT REMAINS ON VENTILATOR. RR ELEVATED, FROM 25-40. O2SAT 92%. SIMV MODE ON VENT, 60%, TV550, RATE 15, PEEP 10, pSUPP 20. LUNGS COARSE THROUGHOUT. HR 120-130'S. BP STABLE. BS HYPOACTIVE. OG TO LIS; GREEN DRAINAGE. PULSES STRONG UPPER, WEAK LOWER EXTREMETIES. SKIN W/M/I. RESTRAINTS REMOVED TEMPORARILY FOR NURSING CARE AND REPOSITIONING, THEN REAPPLIED. MOUTH CARE PROVIDED. ET SUCTION DONE BY RT. PT BECOMES IRRITABLE WITH STIMULATION. SEDATED WITH PROPOFOL. RASS -2.
--- NOTE | 2024-09-05 08:00 | NUR ---
SPOKE WITH DR. LEMUS OVER THE PHONE REGARDING PT STATUS. ORDERS RECEIVED AND PLACED ACCORDINGLY.
[2024-09-05 08:33] LABS: HEMATOCRIT 29.9 % (37.0-47.0); HEMOGLOBIN 9.8 g/dl (12.0-16.0); IMMATURE GRANULOCYTES 0.1 % (0.0-5.0); LYMPH% 10.1 % (15-41); MEAN CELL VOLUME 107.9 fL CALC (80.0-100.0); MEAN CORPUSCULAR HGB 35.4 pG CALC (26.0-32.0); MEAN CORPUSCULAR HGB CONC 32.8 g/dL CAL (32.0-36.0); MONO% 6.8 % (2-13); NEUT# 6.3 thou/uL (2.00-7.15); RED BLOOD COUNT 2.77 mill/uL (4.20-5.60); RED CELL DISTRI WIDTH 13.6 % (11.5-15.5)
[2024-09-05 08:45] LABS: BILIRUBIN, TOTAL 1.4 mg/dL (0.02-1.3); CREATININE 0.7 mg/dL (0.5-1.0); POTASSIUM 2.8 mmol/l (3.5-5.1); TOTAL PROTEIN 5.6 g/dL (6.3-8.2)
[2024-09-05 08:54] LABS: ALBUMIN 3.3 g/dL (3.2-5.0); MAGNESIUM 3.1 mg/dL (1.6-2.3)
--- NOTE | 2024-09-05 09:00 | NUR ---
NO CHANGES TO PT STATUS. ROM PERFORMED. ORAL CARE PROVIDED. CENTRAL LINE DRESSING CHANGE WITH STERILE TECHNIQUE. PT'S VS REMAIN STABLE AT THIS TIME; BREATHING OVER THE VENT STILL, BUT RATE LOW 20'S. HR MORE CONTROLLED, LOW 100'S.
--- NOTE | 2024-09-05 10:33 | NUR ---
Called spoke with Dr. Wiggins. Discussed patient chemistries and hematology results. Discussed most recent chest x-rays and patient current medications and ventilator settings. Discussed frothy drainage from patients eyes, nose and mouth. Discussed pupil size of 4mm bilaterally and current vital signs . Discussed adding parylitic and reasoning for nimbex versus vecuronium Md explaind myoneuroparathesia risk is lessened with nimbec versus vecuronium. MD requests nimbex drip informed will get with pharmacy as there is no approved orderset at this time. MD acknowledged and asked to see if we could initiate. Asked about increase in naltrexone MD stated not needed at this time. Inquired about transfer versus keeping in house MD stated will keep eye on patient to determine when and if transfer was needed.
--- NOTE | 2024-09-05 10:51 | NUR ---
NO CHANGES TO PT STATUS. DR. LEMUS CONTACTED BY Oanh RAPHAEL TO INFORM OF PT STATUS AND LABS.
--- NOTE | 2024-09-05 11:18 | NUR ---
Called spoke with Dr. Wiggins about nimbex adminstration. Dr. Wiggins does not want it adminstered at this time
--- NOTE | 2024-09-05 12:18 | NUR ---
RT AT BEDSIDE. A-LINE PLACED AND READING COORDINGATING WITH CUFF PRESSURE.
--- NOTE | 2024-09-05 14:00 | NUR ---
NO CHANGES TO PT STATUS. VS REMAIN STABLE; HR 80-90'S, RR 24. LOW GRADE TEMP, NOT HIGH ENOUGH FOR IV TYLENOL. FAN ON PT TO HELP COOL. REPOSITIONED AND ROM PERFORMED. MOUTH CARE DONE.
--- NOTE | 2024-09-05 16:00 | NUR ---
NO CHANGES TO PT STATUS. REPOSITIONED AND ORAL CARE PROVIDED. VSS.
--- NOTE | 2024-09-05 18:00 | NUR ---
PT TOLERATING VENT SETTINGS WELL. VS REMAIN STABLE. REPOSITIONED AND ORAL CARE PROVIDED. RASS -2. ROM PERFORMED.
--- NOTE | 2024-09-05 19:15 | NUR ---
RECD PT FROM DAY SHIFT RN. DAY SHIFT RN, FOOD SERVICE HOTEL RUNNER RN, RT, DR LEMUS AND ED WITH ANR BEDSIDE FOR COLLABORATIVE REPORT AND REVIEW OF SYSTEMS/PLAN OF CARE. SERUM POTASSIUM REMAINS DEFICIENT DESPITE REPLACEMENT. ORDERS RECD FOR OVERNIGHT REPLACEMENT VIA OGT AND IV WITH REPEAT LABS IN AM. NALTREXONE RESTARTED WITH NEXT DOSE VIA OGT AT 0400AM. TUBE FEEDS DISCUSSED WITH ATTEMPT TO SUPPLEMENT AND CONTINUE OVERNIGHT REVIEWING RESIDUALS. PT REMAINS ON VENT ETT 7.5 23 @ LIP PLACEMENT CONFIRMED VIA CXR. VENT AT 60% FIO2, PEEP 10, RR 18, TV 550. PT VSS WITH HEART RATE IN MID 70S. BP STABLE AT THIS TIME. ROM COMPLETED, HEELS AND BONY PROMINENCES OFFLOADED. FALL PRECAUTIONS IN PLACE
--- NOTE | 2024-09-05 21:00 | NUR ---
PT TURNED AND REPOSITIONED WITH ROM COMPLETED. OFFLOADING COMPLETE. NOTICED BILATERAL LOWER EXTREM - FEET ARE DEMONSTRATING INDICATION OF POSSIBLE BEGINNINGS OF FOOT DROP; REDUCED TONE IN TOP FRONT PART OF FOOT, MARKED INCREASE IN THE DOWNWARD SLOPE OF FOOT SINCE INTUBATION. PREVENTION MEASURES AND SUPPORT PUT IN PLACE WITH SUPPORT SURFACE/SOFT TONE SUPPORT PLACED BETWEEN FOOTBOARD AND PLANTAR SURFACES OF FEET TO IMPROVE TONICITY AND REDUCE POTENTIAL ATROPHY OF RELATIVE MUSCULATURE WELL IMPROVE RETURN TO LEVEL OF FUNCTION AND MOBILITY SUPPORTING POSITIVE OUTCOME. TUBE FEED ATTEMPTED; 3 OZ ADMINISTERED WITH NOTED INCREASE IN AGITATION AND GENERAL STATE. POST TF; 2 HOURS LATER RESIDUAL ASSESSED AND WAS <5ML. FALL PRECAUTIONS IN PLACE.
--- NOTE | 2024-09-05 23:30 | NUR ---
PT FREQUENT TURNS AND REPOSITIONING COMPLETED. ROM PERFORMED. OFFLOADED. BM NOTED, SMALL TO MODERATE, SOFT STOOL. RELL CARE PERFORMED. PT CLEANED, LINEN CHANGED.FALL PRECAUTIONS IN PLACE.
[2024-09-06] VITALS (11 sets, daily range): BP systolic 114–141; BP diastolic 69–90
--- NOTE | 2024-09-06 00:30 | NUR ---
PT RR INCREASED - DEMONSTRATED CONSISTENT BEHAVIOR FROM PREVIOUS NUCLEAR MEDICAL TECHNOLOGIST WHEN PT SPIKED FEVER. TEMP 102.1 COOL WASHCLOTHES APPLIED. IV ACETAMINOPHEN ADMINISTERED PER MD ORDER. PT REPOSITIONED FOR COMFORT. OFFLOADED BONY PROMINENCES AND PERFORMED ROM.REASSESSMENT INDICATED REDUCTION IN TEMP - 100.3 WITH REDUCTION IN RESP RATE AND LOWERED BP. RESIDUAL CHECKED, <10CC - ADMINISTERED 30CC TF WITH 40CC FREE WATER FLUSH TO CLEAR LINE. PT TOLERATING WELL FALL PRECAUTIONS REMAIN IN PLACE.
--- NOTE | 2024-09-06 02:30 | NUR ---
REPOSITIONED FOR COMFORT. TEMPS REMAIN STABLE - ROUTINE TEMPERATURES TAKEN TO REVIEW FREQUENT TEMPS - 0100 100.2 0130 100.3 0230 99.8 RT MAYDA AM ABG OFF A LINE, SENT TO MD PER REQUEST. VSS. KHAN. STABLE AT THIS TIME.
--- NOTE | 2024-09-06 04:45 | NUR ---
PT TURNED AND REPOSITIONED. RESIDUAL < 10CC. HR/BP STABLE WITH VARIABLE IMPROVEMENT IN ABGS PER RT. MAINTAINED STABILITY THE MAJORITY OF THE OVERNIGHT. NO DISTRESS NOTED. FALL ORECAUTIONS REMAIN IN PLACE.
[2024-09-06 05:35] LABS: BASO% 0.1 % (0-3); HEMATOCRIT 29.3 % (37.0-47.0); HEMOGLOBIN 9.5 g/dl (12.0-16.0); LYMPH% 7.7 % (15-41); MEAN CELL VOLUME 109.7 fL CALC (80.0-100.0); MEAN CORPUSCULAR HGB 35.6 pG CALC (26.0-32.0); MEAN CORPUSCULAR HGB CONC 32.4 g/dL CAL (32.0-36.0); MONO% 4.9 % (2-13); NEUT# 9.79 thou/uL (2.00-7.15); NEUT% 86.2 % (42-76); RED BLOOD COUNT 2.67 mill/uL (4.20-5.60)
[2024-09-06 05:58] LABS: ALBUMIN 3.5 g/dL (3.2-5.0); BILIRUBIN, TOTAL 1.6 mg/dL (0.02-1.3); CREATININE 0.8 mg/dL (0.5-1.0); MAGNESIUM 2.8 mg/dL (1.6-2.3); POTASSIUM 4.4 mmol/l (3.5-5.1); TOTAL PROTEIN 5.8 g/dL (6.3-8.2)
[2024-09-06 06:07] LABS: IMMATURE GRANULOCYTES 1.1 % (0.0-5.0)
--- NOTE | 2024-09-06 06:18 | NUR ---
PT HAS REMAINED STABLE, NO CHANGES NOTED. VSS AT THIS TIME. TOLERATED OVERNIGHT FEED WELL. ROM PERFORMED, FREQUENT TURNS COMPLETE.PT REMAINED STABLE THROUGHOUT SHIFT WITH REPEAT TEMP AT 0615AM OF 99.[address]
--- NOTE | 2024-09-06 09:27 | NUR ---
SPOKE WITH DR. TAYLOR INFORMED HIM OF PT'S FEVER OF 102.9, PT RECIEVED TYLONOL 500MG PO. INFORMED HIM OF PT'S DISTENDED AND MORE FIRM ABD, STAT KUB WAS ORDERED. ASKED IF HE WOULD LIKE LIPASE AND AMYLASE LABS, HE STATED NO.
== END | disposition home or self-care (01) | DRG 896 ==
LOC: ANR 04:04 → MS2 04:04 → ICU 04:04 → MS2 07:35 → ANR 09:00 → MS2 17:48 → ICU 09-01 09:35
PROVIDERS: ATTEND Anesthesiology
DX: F11.20 Opioid dependence, uncomplicated (principal); G92.8 Other toxic encephalopathy; J96.00 Acute respiratory failure, unspecified whether with hypoxia or hypercapnia; J95.4 Chemical pneumonitis due to anesthesia; J90 Pleural effusion, not elsewhere classified; E87.8 Other disorders of electrolyte and fluid balance, not elsewhere classified; D64.9 Anemia, unspecified; E88.09 Other disorders of plasma-protein metabolism, not elsewhere classified; Z72.0 Tobacco use; U07.0 Vaping-related disorder; F10.90 Alcohol use, unspecified, uncomplicated
CPT/HCPCS: J0131; J0735; J1100; J1200; J1630; J1939; J2060; J2354; J2405; J2470; J2543; J2550; J2704; J3360; J3475; J3480; J3490; P9047